=== PATIENT | male | born 1995 | race African-American/Black ===

== ENCOUNTER 2021-03-25 21:46 | Emergency (ER) | payer SELFPAY ==
[~2021-03-25] VITALS: Ht 177.8 cm; Wt 81.0 kg
[2021-03-25 21:51] VITALS: BP 109/59
[2021-03-25] MEDS ORDERED: B50 MT (22:19)
[2021-03-25] MEDS ORDERED: IBUP-2028 MT (22:21)
[2021-03-25] MEDS ORDERED: EMOL454C7 TP (22:21)
[2021-03-25] MEDS ORDERED: HYDR453.4 TP (22:22)
== END 2021-03-25 22:49 | disposition home or self-care (01) ==
LOC: ER 21:46
DX: T65.6X1A Toxic effect of paints and dyes, not elsewhere classified, accidental (unintentional), initial encounter (principal); L23.5 Allergic contact dermatitis due to other chemical products; Y92.098 Other place in other non-institutional residence as the place of occurrence of the external cause
CPT/HCPCS: 99282